=== PATIENT | female | born 1950 | race Caucasian/White ===

== ENCOUNTER → 2018-09-30 | Outpatient (CLI) | payer MEDICARE, OTHER | LOC: M.CT 08:11 | DX: N28.1 Cyst of kidney, acquired (principal); A50 Congenital syphilis; R91.8 Other nonspecific abnormal finding of lung field; R63.4 Abnormal weight loss; R53.83 Other fatigue; Z90.710 Acquired absence of both cervix and uterus ==

== ENCOUNTER → 2018-10-06 | Outpatient (CLI) | payer MEDICARE, OTHER | LOC: M.CT 13:12 | DX: R91.8 Other nonspecific abnormal finding of lung field (principal); N28.1 Cyst of kidney, acquired; Z87.442 Personal history of urinary calculi ==